=== PATIENT | male | born 1960 | race Caucasian/White ===

== ENCOUNTER 2017-11-16 14:50 | Outpatient (CLI) | payer SELFPAY ==
[2017-11-16 17:10] LABS: eGFR (African) > 60; eGFR (Non-African) > 60
== END 2017-11-16 14:52 ==
LOC: CARD 14:50
PROVIDERS: ATTEND Internal Medicine Cardiovascular Disease
DX: I42.9 Cardiomyopathy, unspecified (principal); I25.10 Atherosclerotic heart disease of native coronary artery without angina pectoris; I10 Essential (primary) hypertension; E78.5 Hyperlipidemia, unspecified; E11.9 Type 2 diabetes mellitus without complications; Z72.0 Tobacco use; E66.9 Obesity, unspecified
CPT/HCPCS: 36415; 80048; 99213

== ENCOUNTER 2017-12-28 11:11 | Outpatient (CLI) | payer SELFPAY | END 2017-12-28 11:12 | LOC: CARD 11:11 | PROVIDERS: ATTEND Internal Medicine Cardiovascular Disease | DX: I42.9 Cardiomyopathy, unspecified (principal); I10 Essential (primary) hypertension; E78.5 Hyperlipidemia, unspecified; E11.9 Type 2 diabetes mellitus without complications; Z72.0 Tobacco use; E66.9 Obesity, unspecified; G47.30 Sleep apnea, unspecified; R05 Cough; I25.10 Atherosclerotic heart disease of native coronary artery without angina pectoris | CPT/HCPCS: 99213 ==